=== PATIENT | female | born 1990 | race African-American/Black ===

== ENCOUNTER 2019-10-15 16:28 | Emergency (ER) | payer SELFPAY ==
--- NOTE | 2019-10-15 17:12 | ER ---
Nurse's Notes [facility] Name: Temi Mcnulty Age: 29 yrs Sex: Female : 1990 Arrival Date: 10/15/2019 Time: 16:29 Bed 6 Private MD: Diagnosis: Chest pain, unspecified Presentation: 10/14 16:33 Chief complaint: Patient states: mid-sternal chest pain that began 1 week ago. Pt aa5 denies any other symptoms, denies nausea, denies vomiting, denies cough, denies SOB. 16:33 Coronavirus screen: Proceed with normal triage. Patient denies a cough. Patient denies aa5 shortness of breath or difficulty breathing. Patient denies measured and/or subjective temperature greater than 100.4F prior to today's visit. Patient denies travel on a cruise ship or to a country the [facility] currently lists as an affected area. Patient denies contact with known and/or suspected case of COVID-19. Ebola Screen: Patient negative for fever greater than or equal to 101.5 degrees Fahrenheit, and additional compatible Ebola Virus Disease symptoms. Initial Sepsis Screen: Does the patient meet any 2 criteria? No. Patient's initial sepsis screen is negative. Does the patient have a suspected source of infection? No. Patient's initial sepsis screen is negative. Risk Assessment: Do you want to hurt yourself or someone else? Patient reports no desire to harm self or others. Onset of symptoms was September 2019. 16:33 Acuity: STACI 3 aa5 16:33 Method Of Arrival: Ambulatory aa5 ENGROSSER: 16:40 [facility] 10/06/2019 aa5 Historical: - Allergies: 16:40 No Known Allergies; aa5 - PMHx: 16:40 None; aa5 - PSHx: 16:40 ; aa5 - Immunization history:: Flu vaccine status is unknown. - Social history:: Smoking status: Patient reports the use of cigarette tobacco products, denies chronic smoking, but will smoke occasionally. Screenin:40 Abuse screen: Denies threats or abuse. Nutritional screening: No deficits noted. rb1 Tuberculosis screening: No symptoms or risk factors identified. Fall Risk None identified. Assessment: 16:40 General: Appears in no apparent distress. comfortable, Behavior is calm, cooperative, rb1 Denies fever. Pain: Complains of pain in mid-sternal area Pain does not radiate. Pain began x 1 week ago. pt. reports that she was just lying there when it happened. Pain: Quality of pain is described as sharp. Neuro: Level of Consciousness is awake, alert, obeys commands, Oriented to person, place, time, situation. Cardiovascular: Capillary refill < 3 seconds. Respiratory: Airway is patent Respiratory effort is even, unlabored, Respiratory pattern is regular, symmetrical. Respiratory: Denies cough, shortness of breath. GI: Patient currently denies diarrhea, nausea, vomiting. : No signs and/or symptoms were reported regarding the genitourinary system. Derm: Skin is dry, Skin is normal, Skin temperature is warm. 17:31 Reassessment: Patient appears in no apparent distress at this time. Patient and/or ls4 family updated on plan of care and expected duration. Pain level reassessed. Patient is alert, oriented x 3, equal unlabored respirations, skin warm/dry/pink. Vital Signs: 16:33 BP 128 / 81; Pulse 89; Resp 16 S; Temp 98.9(O); Pulse Ox 100% on R/A; Weight 65.77 kg aa5 (R); Height 5 ft. 3 in. (160.02 cm) (R); Pain 7/10; 17:32 BP 119 / 74; Pulse 78; Resp 22; Temp 98.4(O); Pulse Ox 99% on R/A; Pain 3/10; ls4 16:33 Body Mass Index 25.69 (65.77 kg, 160.02 cm) aa5 ED Course: 16:29 Patient arrived in ED. ag5 16:33 [facility] Cra[facility] kb 16:33 Prashant Kaufman MD is Attending Physician. kb 16:33 Arm band placed on Patient placed in an exam room, on a stretcher. aa5 16:33 Patient has correct armband on for positive identification. Bed in low position. Call aa5 light in reach. Side rails up X 1. Pulse ox on. NIBP on. 16:39 Triage completed. aa5 16:40 Shima Wilkinson, RN is Primary Nurse. rb1 16:40 Patient maintains SpO2 saturation greater than 95% on room air. rb1 17:03 Chest Pa And Lat (2 Views) XRAY In Process Unspecified. EDMS 17:31 No provider procedures requiring assistance completed. Patient did not have IV access ls4 during this emergency room visit. Administered Medications: No medications were administered Outcome: 17:11 Discharge ordered by . kb 17:31 Discharged to home ambulatory. ls4 17:31 Condition: good 17:31 Discharge instructions given to patient, Instructed on discharge instructions, follow up and referral plans. medication usage, safety practices, Demonstrated understanding of instructions, follow-up care, medications. 17:33 Patient left the ED. ls4 Signatures: Dispatcher [employer] EDMI Blanca Craven, OIL FIRE SPECIALIST-C OIL FIRE SPECIALIST-Eulalia Anthony RN RN aa5 Shima Wilkinson RN RN rb1 Muriel Walls RN RN ls4 Michelle Whaley ag5
--- NOTE | 2019-10-15 17:12 | EDPHYS ---
Physician Documentation [facility] Name: Temi Mcnulty Age: 29 yrs Sex: Female : 1990 Arrival Date: 10/15/2019 Time: 16:29 Bed 6 Private MD: ED Physician Prashant Kaufman HPI: 10/14 16:43 This 29 yrs old Black Female presents to ER via Ambulatory with complaints of Chest kb Pain. 16:43 The patient or guardian reports chest pain that is located primarily in the substernal kb area. The pain does not radiate. Associated signs and symptoms: The patient has no apparent associated signs or symptoms, Pertinent negatives: cough, nausea, shortness of breath. The chest pain is described as aching. Duration: The patient or guardian reports multiple episodes, that are intermittent, with no pattern. Modifying factors: The symptoms are alleviated by nothing. the symptoms are aggravated by movement, palpation of area. Severity of pain: At its worst the pain was moderate in the emergency department the pain is unchanged. The patient has experienced similar episodes in the past. The patient has not recently seen a physician. Pt reports pain to center of chest that has been intermittent over the last week. Reports pain worse with movement and palpation. Denies any other symptoms, including cough, shortness of breath, fever, palpitations. States she has had this several times before but hasn't gotten it checked out.. 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 - Social history:: Smoking status: Patient reports the use of cigarette tobacco products, denies chronic smoking, but will smoke occasionally. ROS: 16:41 Constitutional: Negative for fever, chills, and weight loss, Neck: Negative for injury, kb pain, and swelling, Respiratory: Negative for shortness of breath, cough, wheezing, and pleuritic chest pain, Abdomen/GI: Negative for abdominal pain, nausea, vomiting, diarrhea, and constipation, Back: Negative for injury and pain, MS/Extremity: Negative for injury and deformity, Skin: Negative for injury, rash, and discoloration, Neuro: Negative for headache, weakness, numbness, tingling, and seizure. 16:41 Cardiovascular: Positive for chest pain, Negative for edema, orthopnea, palpitations, paroxysmal nocturnal dyspnea. Exam: 16:42 Constitutional: This is a well developed, well nourished patient who is awake, alert, kb and in no acute distress. Head/Face: Normocephalic, atraumatic. Cardiovascular: Regular rate and rhythm with a normal S1 and S2. No gallops, murmurs, or rubs. Normal PMI, no JVD. No pulse deficits. Respiratory: Lungs have equal breath sounds bilaterally, clear to auscultation and percussion. No rales, rhonchi or wheezes noted. No increased work of breathing, no retractions or nasal flaring. Abdomen/GI: Soft, non-tender, with normal bowel sounds. No distension or tympany. No guarding or rebound. No evidence of tenderness throughout. Skin: Warm, dry with normal turgor. Normal color with no rashes, no lesions, and no evidence of cellulitis. MS/ Extremity: Pulses equal, no cyanosis. Neurovascular intact. Full, normal range of motion. Neuro: Awake and alert, GCS 15, oriented to person, place, time, and situation. Cranial nerves II-XII grossly intact. Motor strength 5/5 in all extremities. Sensory grossly intact. Cerebellar exam normal. Normal gait. 16:42 Chest/axilla: Inspection: normal, Palpation: tenderness, that is moderate, of the mid-sternal area, that totally reproduces the patient's complaints. 16:54 ECG was reviewed by the Attending Physician. Vital Signs: 16:33 BP 128 / 81; Pulse 89; Resp 16 S; Temp 98.9(O); Pulse Ox 100% on R/A; Weight 65.77 kg aa5 (R); Height 5 ft. 3 in. (160.02 cm) (R); Pain 7/10; 17:32 BP 119 / 74; Pulse 78; Resp 22; Temp 98.4(O); Pulse Ox 99% on R/A; Pain 3/10; ls4 16:33 Body Mass Index 25.69 (65.77 kg, 160.02 cm) aa5 MDM: 16:33 Patient medically screened. 16:41 Data reviewed: vital signs, nurses notes. Data interpreted: Pulse oximetry: on room air kb is 100 %. Interpretation: normal. 17:11 Counseling: I had a detailed discussion with the patient and/or guardian regarding: the kb historical points, exam findings, and any diagnostic results supporting the discharge/admit diagnosis, radiology results, the need for outpatient follow up, a family practitioner, to return to the emergency department if symptoms worsen or persist or if there are any questions or concerns that arise at home. 10/14 16:37 Order name: Chest Pa And Lat (2 Views) XRAY; Complete Time: 17:23 kb 10/14 16:37 Order name: EKG; Complete Time: 16:37 kb 10/14 16:37 Order name: EKG - Nurse/Tech; Complete Time: 16:56 kb EC:54 Rate is 91 beats/min. Rhythm is regular. QRS [place] is Normal. GA interval is normal at kb 150 msec. QRS interval is normal at 88 msec. QT interval is normal at 368 msec. Administered Medications: No medications were administered Disposition: 18:20 Co-signature as Attending Physician, Prashant Kaufman MD. rn Disposition: 10/15/19 17:11 Discharged to Home. Impression: Chest pain, unspecified. - Condition is Stable. - Discharge Instructions: Chest Wall Pain, [id number]. - Medication Reconciliation Form, Thank You Letter, Antibiotic Education, Prescription Opioid Use form. - Follow up: Emergency Department; When: As needed; Reason: Worsening of condition. Follow up: Private Physician; When: 2 - 3 days; Reason: Recheck today's complaints, Continuance of care, Re-evaluation by your physician. Signatures: Dispatcher [employer] EDMN Blanca Craven, EMPLOYMENT ASSISTANT-C EMPLOYMENT ASSISTANT-Ckb Prashant Kaufman MD MD rn Calderon, Audri, RN RN aa5 Muriel Walls, RN RN ls4 Corrections: (The following items were deleted from the chart) 17:33 17:11 10/15/2019 17:11 Discharged to Home. Impression: Chest pain, unspecified. ls4 Condition is Stable. Forms are Medication Reconciliation Form, Thank You Letter, Antibiotic Education, Prescription Opioid Use. Follow up: Emergency Department; When: As needed; Reason: Worsening of condition. Follow up: Private Physician; When: 2 - 3 days; Reason: Recheck today's complaints, Continuance of care, Re-evaluation by your physician. kb
--- NOTE | 2019-10-15 17:18 | RAD REPORT ---
EXAM DESCRIPTION: Shannna Harrington (2 Views)10/15/2019 5:04 pm CLINICAL HISTORY: Chest pain COMPARISON: 2016 FINDINGS: The lungs appear clear of acute infiltrate. The heart is normal size IMPRESSION: No acute abnormalities displayed
[2019-10-15 17:54] VITALS: BP 119/74; TEMP 98.4; O2SAT 99
--- NOTE | 2019-10-16 13:09 | EKG ---
Test Date: 2019-10-15 Test Time: 16:49:16 Bottom Sander: JUDE MEASUREMENT RESULTS: Intervals: Rate: 91 ME: 150 QRSD: 88 QT: 368 QTc: 452 [place]: P: 59 ME: 150 QRS: 59 T: 31 INTERPRETIVE STATEMENTS: Normal sinus rhythm Nonspecific T wave abnormality Abnormal ECG Compared to ECG 07/24/2015 07:37:53 T-wave abnormality now present Electronically Signed On 10-16-19 13:09:22 CDT by Lencho Hernandes
== END 2019-10-15 17:33 | disposition home or self-care (01) ==
LOC: ER 16:28
DX: R07.9 Chest pain, unspecified (principal); F17.210 Nicotine dependence, cigarettes, uncomplicated
CPT/HCPCS: 71046; 93005; 99284